=== PATIENT | male | born 1980 | race Caucasian/White ===

== ENCOUNTER 2021-04-24 08:44 | Emergency (ER) | payer OTHER ==
[2021-04-24] MEDS ORDERED: IV NORMAL SALINE 1,000ML 1,000 ML IV SCH (09:30)
[2021-04-24] MEDS ORDERED: CONTRAST GIVEN. MC PRN (10:00)
[2021-04-24] MEDS ORDERED: IOHEXOL 300 MG/ML 75 ML VIAL. IV ONE (10:00)
[2021-04-24 10:01] LABS: BASO # 0.1 x10^3/uL (0.0-0.2); BASO % 1 % (0-3); EOS % 0 % (0-3); HEMATOCRIT 48.1 % (39.0-53.0); HEMOGLOBIN 16.4 g/dL (13.0-17.5); LYMPH # 3.1 x10^3/uL (1.0-4.8); LYMPH % 35 % (24-48); MEAN CORPUSCULAR HEMOGLOBIN 31 pg (25-35); MEAN CORPUSCULAR HGB CONC 34 g/dL (31-37); MEAN CORPUSCULAR VOLUME 91 fL (79-100); MONO # 0.5 x10^3/uL (0.0-1.1); MONO % 5 % (0-9); NEUT # 5.2 x10^3uL (1.8-7.7); NEUT % 59 % (31-73); PLATELET COUNT 240 x10^3/uL (140-400); RED BLOOD COUNT 5.28 x10^6/uL (4.30-5.70); RED CELL DISTRIBUTION WIDTH 13.4 % (11.5-14.5); WHITE BLOOD COUNT 8.9 x10^3/uL (4.0-11.0)
--- NOTE | 2021-04-24 10:01 | RAD ---
CLINICAL HISTORY: Reason: left testicular pain / Spl. Instructions: / History: COMPARISON: None available. TECHNIQUE: Ultrasound images of the scrotum was performed with azra-scale and color doppler. FINDINGS: The right testis measures 4.1 x 3.2 x 2 The left testis measures 4.1 x 1.6 x 3. There is no intratesticular abnormality. Testicular vascularity is symmetric and within normal limit s. There is a hydrocele seen around the left testicle and the hyperechoic material that appears to be ex tending from the inguinal canal likely related to an inguinal hernia. No peristalsis is identified an d the part of the hernia could represent omental fat although the appearance is suggestive of a bowel loop, probably a segment of the colon within the hernia. The left testicle is displaced inferiorly. The right testicle is displaced superiorly within the scrotum probably secondary to the hernia. IMPRESSION: Findings suggestive of left inguinal hernia containing fluidabdominal, fat and probably a segment of the colon. Electronically signed by: Flynn Monaco MD (04/24/2021 9:59 AM) [id number]
[2021-04-24 10:11] LABS: CALCIUM 9.4 mg/dL (8.5-10.1); CREATININE 0.9 mg/dL (0.7-1.3); GFR 92.5; POTASSIUM 3.4 mmol/L (3.5-5.1)
[2021-04-24 10:15] LABS: TOTAL BILIRUBIN 0.4 mg/dL (0.2-1.0); TOTAL PROTEIN 8.1 g/dL (6.4-8.2)
--- NOTE | 2021-04-24 10:39 | PHYS DOC ---
Past History Past Medical History: No Pertinent History Additional Past Surgical Histo: Ear tubes Smoking: Cigarettes Alcohol Use: None Drug Use: None General Adult EDM: Chief Complaint: TESTICULAR PAIN OR INJURY HPI: HPI: 40-year-old male presents with report of scrotal swelling primarily on the left side x3 days. Patient reports initially started with some discomfort. Patient reports scrotum has increased in size. Reports some burning with urination but denies any concern for STDs. Denies penile discharge. Denies fever or chills. Denies nausea or vomiting. Patient does report some discomfort. Denies trauma. Review of Systems: Review of Systems: Constitutional: Denies fever or chills Eyes: Denies redness or eye pain HENT: Denies nasal congestion or sore throat Respiratory: Denies cough or shortness of breath Cardiovascular: Denies chest pain or palpitations GI: Denies abdominal pain, nausea, or vomiting : Reports dysuria and scrotal swelling; denies penile discharge or hematuria Musculoskeletal: Denies back pain or joint pain Integument: Denies rash or skin lesions Neurologic: Denies headache, focal weakness or sensory changes Complete systems were reviewed and found to be within normal limits, except as documented in this note. Current Medications: Current Meds: Current Medications Medications (Trade) Dose Ordered Sig/Murali Start Time Stop Time Status Last Admin Dose Admin Fentanyl Citrate (Fentanyl 2ml Vial) 50 mcg 1X ONCE 04/24/21 09:30 04/24/21 09:57 DC 04/24/21 10:11 50 MCG Info (Do NOT chart on this entry -- for MONITORING) 1 each PRN DAILY PRN 04/24/21 10:00 04/26/21 09:59 Iohexol (Omnipaque 300 Mg/ml) 75 ml 1X ONCE 04/24/21 10:00 04/24/21 10:01 DC 04/24/21 10:02 75 ML Sodium Chloride 1,000 ml @ 1,000 mls/hr Q1H 04/24/21 09:30 04/24/21 10:29 DC 04/24/21 10:09 1,000 MLS/HR Allergies: Allergies: Allergies Coded Allergies Type Severity Reaction Last Updated Verified Penicillins Allergy Unknown 04/24/21 Yes Physical Exam: PE: Constitutional: Well developed, well nourished, no acute distress, non-toxic appearance HENT: Normocephalic, atraumatic Eyes: Conjunctiva normal, no discharge Neck: Normal range of motion, supple Lungs & Thorax: No respiratory distress, equal chest rise and fall Abdomen: Soft, no tenderness : Scrotal swelling, left groin swelling- concern for inguinal hernia Skin: Warm, dry, no erythema, no rash Back: No tenderness, no CVA tenderness Extremities: No tenderness, ROM intact, no edema Neurologic: Alert and oriented X 3, no focal deficits noted Psychologic: Affect normal, judgment normal Current Patient Data: Labs: Laboratory Tests Test 04/24/21 09:44 White Blood Count 8.9 x10^3/uL (4.0-11.0) Red Blood Count 5.28 x10^6/uL (4.30-5.70) Hemoglobin 16.4 g/dL (13.0-17.5) Hematocrit 48.1 % (39.0-53.0) Mean Corpuscular Volume 91 fL (79-100) Mean Corpuscular Hemoglobin 31 pg (25-35) Mean Corpuscular Hemoglobin Concent 34 g/dL (31-37) Red Cell Distribution Width 13.4 % (11.5-14.5) Platelet Count 240 x10^3/uL (140-400) Neutrophils (%) (Auto) 59 % (31-73) Lymphocytes (%) (Auto) 35 % (24-48) Monocytes (%) (Auto) 5 % (0-9) Eosinophils (%) (Auto) 0 % (0-3) Basophils (%) (Auto) 1 % (0-3) Neutrophils # (Auto) 5.2 x10^3uL (1.8-7.7) Lymphocytes # (Auto) 3.1 x10^3/uL (1.0-4.8) Monocytes # (Auto) 0.5 x10^3/uL (0.0-1.1) Eosinophils # (Auto) 0.0 x10^3/uL (0.0-0.7) Basophils # (Auto) 0.1 x10^3/uL (0.0-0.2) Sodium Level 139 mmol/L (136-145) Potassium Level 3.4 mmol/L (3.5-5.1) L Chloride Level 101 mmol/L (98-107) Carbon Dioxide Level 28 mmol/L (21-32) Anion Gap 10 (6-14) Blood Urea Nitrogen 4 mg/dL (8-26) L Creatinine 0.9 mg/dL (0.7-1.3) Estimated GFR (Cockcroft-Gault) 92.5 BUN/Creatinine Ratio 4 (6-20) L Glucose Level 107 mg/dL (70-99) H Lactic Acid Level 1.7 mmol/L (0.4-2.0) Calcium Level 9.4 mg/dL (8.5-10.1) Magnesium Level 2.0 mg/dL (1.8-2.4) Total Bilirubin 0.4 mg/dL (0.2-1.0) Aspartate Amino Transferase (AST) 14 U/L (15-37) L Alanine Aminotransferase (ALT) 20 U/L (16-63) Alkaline Phosphatase 85 U/L (46-116) Total Protein 8.1 g/dL (6.4-8.2) Albumin 4.0 g/dL (3.4-5.0) Albumin/Globulin Ratio 1.0 (1.0-1.7) Lipase 71 U/L (73-393) L Vital Signs: Vital Signs Date Time Temp Pulse Resp B/P (MAP) Pulse Ox O2 Delivery O2 Flow Rate FiO2 04/24/21 10:11 16 96 EKG: EKG: [] Radiology/Procedures: Radiology/Procedures: PROCEDURE: TESTICULAR/SCROTUM CLINICAL HISTORY: Reason: left testicular pain / Spl. Instructions: / History: COMPARISON: None available. TECHNIQUE: Ultrasound images of the scrotum was performed with azar-scale and color doppler. FINDINGS: The right testis measures 4.1 x 3.2 x 2 The left testis measures 4.1 x 1.6 x 3. There is no intratesticular abnormality. Testicular vascularity is symmetric and within normal limits. There is a hydrocele seen around the left testicle and the hyperechoic material that appears to be extending from the inguinal canal likely related to an inguinal hernia. No peristalsis is identified and the part of the hernia could represent omental fat although the appearance is suggestive of a bowel loop, pro bably a segment of the colon within the hernia. The left testicle is displaced inferiorly. The right testicle is displaced superiorly within the scrotum probably secondary to the hernia. IMPRESSION: Findings suggestive of left inguinal hernia containing fluidabdominal, fat and probably a segment of the colon. Electronically signed by: Flynn Monaco MD (04/24/2021 9:59 AM) [id number] PROCEDURE: CT ABD PELV W/ IV CONTRST ONLY Site ID: [id number] EXAMINATION: CT ABDOMEN+PELVIS W. Technique: Axial images with coronal and sagittal reconstructions are performed of abdomen and pelvis with intravenous contrast. 100 mL of Isovue-300 was administered intravenously. One or more of the following radiation dose reduction techniques was used: auto mated exposure control, adjustment of mA and/or KV according to patient size, and/or utilization of iterative reconstruction technique. HISTORY: 40 years Male Reason: groin and testicular swelling, eval inguinal hernia COMPARISON: None. FINDINGS: The lung bases appear clear. The liver, gallbladder, spleen, pancreas, and the adrenal glands appear unremarkable. The kidneys have symmetric enhancement. There is no hydronephrosis. The abdominal aorta is normal in caliber. No para-aortic significantly enlarged lymph node is seen. There are bladder appear unremarkable. There is a left inguinal hernia containing a segment of the sigmoid colon. There is no dilatation of the bowel loops to suggest obstruction. There is a mild the fatty stranding however and the small amount of fluid seen in the hernia sac. The appendix is normal. Significant degenerative changes are seen in the lumbar spine with multilevel prominent disc herniations. IMPRESSION: 1. Left inguinal hernia extending to the scrotum containing a segment of the sigmoid colon with associated the fatty stranding and the surrounding fluid. Surgical consultation is recommended. 2. 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 Electronically signed by: Flynn Monaco MD (04/24/2021 10:46 AM) [id number] Heart Score: C/O Chest Pain: N/A Course & Med Decision Making: Course & Med Decision Making Pertinent Labs and Imaging studies reviewed. (See chart for details) Patient presents with HPI and physical exam concerning for inguinal hernia on left. Significant hernia noted on physical exam and scrotum. Ultrasound confirmed herniation. Labs obtained and posted to chart. CT abdomen/pelvis also with confirmation of left inguinal hernia without strangulation. Patient stable for discharge with outpatient follow-up with PCP/general surgery. General surgery referral placed. Discussed findings and plan with patient, who acknowledges understanding and agreement. Dillon Disclaimer: Dillon Disclaimer: This electronic medical record was generated, in whole or in part, using a voice recognition dictation system. Departure Departure: Impression: Primary Impression: Inguinal hernia Qualified Codes: K40.90 - Unilateral inguinal hernia, without obstruction or gangrene, not specified as recurrent Disposition: 01 HOME / SELF CARE / HOMELESS Condition: STABLE Referrals: TED BURGESS MD (PCP) ROBERTO BAHENA MD Patient Instructions: Inguinal Hernia, Adult Scripts Hydrocodone Bit/Acetaminophen (HYDROCODONE-APAP 5-325 ) 1 Each Tablet 0.5-1 TAB PO PRN Q6HRS PRN for PAIN, #10 TAB 0 Refills Prov: SARA MO DO 04/24/21 SARA MO DO Apr 24, 2021 10:39
--- NOTE | 2021-04-24 10:49 | RAD ---
Site ID: [id number] EXAMINATION: CT ABDOMEN+PELVIS W. Technique: Axial images with coronal and sagittal reconstructions are performed of abdomen and pelvis with intravenous contrast. 100 mL of Isovue-300 was administered intravenously. One or more of the following radiation dose reduction techniques was used: automated exposure control , adjustment of mA and/or KV according to patient size, and/or utilization of iterative reconstructio n technique. HISTORY: 40 years Male Reason: groin and testicular swelling, eval inguinal hernia COMPARISON: None. FINDINGS: The lung bases appear clear. The liver, gallbladder, spleen, pancreas, and the adrenal glands appear unremarkable. The kidneys have symmetric enhancement. There is no hydronephrosis. The abdominal aorta is normal in caliber. No para-aortic significantly enlarged lymph node is seen. There are bladder appear unremarkable. There is a left inguinal hernia containing a segment of the sigmoid colon. There is no dilatation of the bowel loops to suggest obstruction. There is a mild the fatty stranding however and the small sam unt of fluid seen in the hernia sac. The appendix is normal. Significant degenerative changes are seen in the lumbar spine with multilevel prominent disc herniati ons. IMPRESSION: 1. Left inguinal hernia extending to the scrotum containing a segment of the sigmoid colon with assoc iated the fatty stranding and the surrounding fluid. Surgical consultation is recommended. 2. 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 Electronically signed by: Flynn Monaco MD (04/24/2021 10:46 AM) [id number]
[2021-04-24 10:50] VITALS: BP 134/87
[2021-04-24] MEDS ORDERED: HYDR-2155 PO (11:15)
[2021-04-24 12:33] LABS: BACTERIA,URINE 0 /HPF (0-FEW); BILIRUBIN,URINE NEG (NEG); CLARITY,URINE CLEAR; COLOR,URINE YELLOW; GLUCOSE,URINE NEG (NEG); NITRITE,URINE NEG (NEG); RBC,URINE OCC /HPF (0-2); SQUAMOUS EPITHELIAL CELL,UR OCC /LPF; UROBILINOGEN,URINE 0.2 mg/dL (0.2 mg/dL); WBC,URINE OCC /HPF (0-4)
== END 2021-04-24 12:49 | disposition home or self-care (01) ==
LOC: ER 08:44
DX: K40.90 Unilateral inguinal hernia, without obstruction or gangrene, not specified as recurrent (principal); R30.0 Dysuria; F17.210 Nicotine dependence, cigarettes, uncomplicated; Z88.0 Allergy status to penicillin
CPT/HCPCS: 36415; 74177; 76870; 80053; 81001; 83605; 83690; 83735; 85025; 87491; 87591; 96361; 96374; 99285; J3010; J7030; Q9967